=== PATIENT | female | born 1970 | race Caucasian/White ===

== ENCOUNTER 2024-01-08 17:06 | Inpatient (IN) | payer BC ==
[2024-01-08] MEDS ORDERED: Acetaminophen 325 MG TAB PO PRN (21:50)
[2024-01-08] MEDS ORDERED: Calcium Carbonate 500 MG ChewTAB PO PRN (21:50)
[2024-01-08] MEDS ORDERED: Acetaminophen/Codeine 30-300mg Tablet PO PRN (21:50)
[2024-01-08] MEDS ORDERED: Senokot S 8.6-50 MG TAB PO PRN (21:50)
[2024-01-08] MEDS ORDERED: hydrALAZINE 20 MG/ML VIAL SLOW IVP PRN (21:55)
[2024-01-08] MEDS ORDERED: Dextrose 5% in Water 1,000 ML IV PRN (22:00)
[2024-01-08] MEDS ORDERED: Dextrose 50% Abboject 50 ML SYRINGE SLOW IVP PRN (22:00)
[2024-01-08] MEDS ORDERED: Glucagon 1 MG/ML KIT IM PRN (22:00)
[2024-01-08] MEDS ORDERED: Insulin Lispro 100 UNIT/ML 10 ML VIAL SC PRN (22:00)
[2024-01-08 22:08] VITALS: BMI 25.4
[2024-01-08 22:41] LABS: Anion Gap 24 mmol/L (10-20); BUN (Urea Nitrogen) 42 mg/dL (9.8-20.1); Calc. Creatinine Clearance 29 mL/min (70-130); Calcium 8.4 mg/dL (7.8-10.44); Carbon Dioxide 17 mmol/L (22-29); Chloride 100 mmol/L (98-107); Estimated GFR 23; Glucose 246 mg/dL (70-105); Magnesium 2.9 mg/dL (1.6-2.6); Sodium 137 mmol/L (136-145)
[2024-01-08] MEDS: Sodium Chloride 0.9% 1,000 ML IV SCH ×2 (23:08→23:22)
[2024-01-08] MEDS: Sodium Bicarb 50 mEq/50 ML VIAL IVP SCH (23:22)
[2024-01-08] MEDS: Insulin Regular, Human 100 UNIT/ML 10 ML VIAL IVP SCH (23:51)
[2024-01-09 00:08] LABS: Troponin I 0.199 ng/mL (< 0.028)
[2024-01-09] MEDS ORDERED: Meclizine HCl 12.5 MG TAB PO PRN (01:10)
[2024-01-09 02:08] LABS: Troponin I 0.173 ng/mL (< 0.028)
[2024-01-09 04:16] LABS: Base Excess -5.8 mEq/L (-2.0 to +3.0); Calcium, Ionized (venous) 1.08 mmol/L (1.16-1.32); Chloride (VBG) 99 mmol/L (98-106); Hematocrit-VBG 31 % (36.0-47.0); Hemoglobin (Hb) 10.4 g/dL (11.7-16.0); Sodium 138 mmol/L (133-146); pH (venous) 7.356 (7.32-7.43)
[2024-01-09 04:38] LABS: ALT (SGPT) 14 U/L (8-55); AST (SGOT) 13 U/L (5-34); Albumin 2.9 g/dL (3.5-5.0); Alkaline Phosphatase 96 U/L (40-110); Anion Gap 22 mmol/L (10-20); BUN (Urea Nitrogen) 48 mg/dL (9.8-20.1); Bilirubin, Total 0.6 mg/dL (0.2-1.2); Calc. Creatinine Clearance 29 mL/min (70-130); Calcium 8.2 mg/dL (7.8-10.44); Carbon Dioxide 18 mmol/L (22-29); Cardiac Risk 2.6 (Less than 4.5); Chloride 102 mmol/L (98-107); Cholesterol 111 mg/dl (< 200 Desired); Estimated GFR 24; Globulin 3.2 g/dL (2.4-3.5); Glucose 240 mg/dL (70-105); HDL Cholesterol 42 mg/dL (>60 Neg Risk); LDL Cholesterol, Calculated 54 mg/dL; Magnesium 2.8 mg/dL (1.6-2.6); Potassium 3.8 mmol/L (3.5-5.1); Protein, Total 6.1 g/dL (6.0-8.3); Sodium 138 mmol/L (136-145); Triglycerides 73 mg/dL (Less than 150)
[2024-01-09 04:42] LABS: Hemoglobin A1c 7.6 % (4.0-6.0)
[2024-01-09 04:44] LABS: Hematocrit 29.7 % (36.0-47.0); Hemoglobin 9.5 g/dL (12.0-16.0); Mean Corpuscular Hemoglobin 27.2 pg (27.0-31.0); Mean Corpuscular Volume 85.1 fL (78.0-98.0); Mean Platelet Volume 13.6 fL (7.4-10.4); Platelet Count 161 10x3/uL (130-400); RBC Distribution Width 12.4 % (11.5-14.5); Red Blood Cell (RBC) Count 3.49 mill/uL (4.20-5.40)
[2024-01-09] MEDS: Insulin Lispro 100 UNIT/ML 10 ML VIAL SC SCH (05:00)
[2024-01-09] MEDS: Sodium Bicarbonate Tab 325 MG TAB PO SCH ×2 (05:01→10:04)
[2024-01-09] MEDS: Lactated Ringer's 500 ML IV SCH (05:01)
[2024-01-09 06:38] LABS: Anisocytosis SLIGHT = 6-15 cells HPF (0-5); Band 4 % (5-11); Elliptocytes SLIGHT = 2-5 cells HPF (0-1); Lymphocytes 20 % (21-51); Monocytes 5 % (0-10); Neutrophil 69 % (42-75); Platelet Adequacy Comment Platelets Normal; Reactive Lymphocytes 2 % (0-10)
[2024-01-09 07:48] LABS: Bacteria/HPF 4+ HPF (None Seen); Bilirubin Negative (Negative); Blood, Urine Negative (Negative); Clarity Turbid (Clear); Glucose, Urine (Dipstick) Greater than 1000 mg/dL (Negative); Ketone, Urine 10 mg/dL (Negative); Leukocyte Negative Leu/uL (Negative); Nitrite Negative (Negative); Protein, Urine (Dipstick) 50 mg/dL (Neg-Trace); RBC/HPF 0-3 HPF (0-3); Specific Gravity, Urine 1.006 (1.002-1.036); Squamous Epithelial None Seen HPF (0-3); Urobilinogen Normal mg/dL (Less than 2); WBC/HPF 0-3 HPF (0-3)
[2024-01-09] MEDS ORDERED: Sodium Bicarbonate Tab 325 MG TAB PO SCH (09:00)
[2024-01-09] MEDS: Aspirin Chewable 81 MG TAB PO SCH (10:04)
[2024-01-09] MEDS: Ezetimibe 10 MG TAB PO SCH (10:04)
[2024-01-09] MEDS: Pantoprazole DR 40 MG TAB PO SCH (10:04)
[2024-01-09] MEDS: Clopidogrel Bisulfate 75 MG TAB PO SCH (10:05)
[2024-01-09] MEDS: Insulin Glargine 30 UNITS/0.3 ML VIAL SC SCH (10:05)
[2024-01-09] MEDS: Heparin 5,000 UNITS/ML VIAL SC SCH (10:05)
[2024-01-09 10:25] LABS: Anion Gap 19 mmol/L (10-20); BUN (Urea Nitrogen) 49 mg/dL (9.8-20.1); Calc. Creatinine Clearance 30 mL/min (70-130); Carbon Dioxide 21 mmol/L (22-29); Chloride 101 mmol/L (98-107); Estimated GFR 24; Glucose 256 mg/dL (70-105); Potassium 3.5 mmol/L (3.5-5.1); Sodium 137 mmol/L (136-145)
[2024-01-09] MEDS: PARoxetine CR 12.5 MG ER.TAB PO SCH (10:25)
[2024-01-09] MEDS: Insulin Lispro 100 UNIT/ML 10 ML VIAL SC PRN (14:27)
[2024-01-09] MEDS: hydrALAZINE 25 MG TAB PO SCH ×2 (18:00→20:38)
[2024-01-09] MEDS: Isosorbide Dinitrate 20 MG TAB PO SCH (18:02)
[2024-01-09] MEDS: Isosorbide Dinitrate 5 MG TAB PO SCH (20:38)
[2024-01-10 04:41] LABS: Albumin 2.9 g/dL (3.5-5.0); Anion Gap 15 mmol/L (10-20); BUN (Urea Nitrogen) 50 mg/dL (9.8-20.1); Calc. Creatinine Clearance 30 mL/min (70-130); Calcium 7.7 mg/dL (7.8-10.44); Carbon Dioxide 23 mmol/L (22-29); Chloride 102 mmol/L (98-107); Estimated GFR 24; Glucose 162 mg/dL (70-105); Phosphorus 4.3 mg/dL (2.3-4.7); Potassium 3.5 mmol/L (3.5-5.1); Sodium 136 mmol/L (136-145)
[2024-01-11 04:24] LABS: Anion Gap 14 mmol/L (10-20); BUN (Urea Nitrogen) 41 mg/dL (9.8-20.1); Calc. Creatinine Clearance 34 mL/min (70-130); Calcium 7.7 mg/dL (7.8-10.44); Carbon Dioxide 23 mmol/L (22-29); Chloride 106 mmol/L (98-107); Estimated GFR 28; Glucose 100 mg/dL (70-105); Magnesium 2.5 mg/dL (1.6-2.6); Potassium 3.8 mmol/L (3.5-5.1); Sodium 139 mmol/L (136-145)
[2024-01-11 10:12] LABS: #Basophils 0.03 10x3/uL (0.0-0.2); %Basophils 0.7 % (0.0-1.0); %Monocytes 9.3 % (0.0-10.0); %Neutrophils 66.8 % (42.0-75.0); Hematocrit 30.6 % (36.0-47.0); Hemoglobin 9.9 g/dL (12.0-16.0); Mean Corpuscular HGB CONC 32.4 g/dL (32.0-36.0); Mean Corpuscular Hemoglobin 27.3 pg (27.0-31.0); Mean Corpuscular Volume 84.5 fL (78.0-98.0); Mean Platelet Volume 13.3 fL (7.4-10.4); Platelet Count 250 10x3/uL (130-400); RBC Distribution Width 12.6 % (11.5-14.5); Red Blood Cell (RBC) Count 3.62 mill/uL (4.20-5.40)
[2024-01-11] MEDS: hydrALAZINE 25 MG TAB PO SCH (14:21)
[2024-01-11] MEDS: Dapagliflozin Propanediol 10 MG TAB PO SCH (14:21)
[2024-01-12 04:52] LABS: #Basophils 0.04 10x3/uL (0.0-0.2); %Basophils 0.7 % (0.0-1.0); %Eosinophils 4.2 % (0.0-10.0); %Lymphocytes 29.2 % (21.0-51.0); %Monocytes 10.4 % (0.0-10.0); %Neutrophils 55.3 % (42.0-75.0); Hematocrit 30.1 % (36.0-47.0); Hemoglobin 9.5 g/dL (12.0-16.0); Mean Corpuscular HGB CONC 31.6 g/dL (32.0-36.0); Mean Corpuscular Hemoglobin 26.9 pg (27.0-31.0); Mean Corpuscular Volume 85.3 fL (78.0-98.0); Mean Platelet Volume 12.9 fL (7.4-10.4); Platelet Count 233 10x3/uL (130-400); RBC Distribution Width 12.8 % (11.5-14.5); Red Blood Cell (RBC) Count 3.53 mill/uL (4.20-5.40)
[2024-01-12 05:16] LABS: Anion Gap 14 mmol/L (10-20); BUN (Urea Nitrogen) 30 mg/dL (9.8-20.1); Calc. Creatinine Clearance 42 mL/min (70-130); Calcium 8.2 mg/dL (7.8-10.44); Carbon Dioxide 18 mmol/L (22-29); Chloride 105 mmol/L (98-107); Estimated GFR 37; Glucose 101 mg/dL (70-105); Potassium 3.8 mmol/L (3.5-5.1); Sodium 133 mmol/L (136-145)
[2024-01-12] MEDS: Dapagliflozin Propanediol 10 MG TAB PO SCH (09:30)
[2024-01-12] MEDS: Torsemide 10 MG TAB PO SCH (10:00)
[2024-01-12] MEDS: Isosorbide Dinitrate 20 MG TAB PO SCH ×2 (10:00→14:52)
[2024-01-13 05:05] LABS: Anion Gap 13 mmol/L (10-20); BUN (Urea Nitrogen) 29 mg/dL (9.8-20.1); Calc. Creatinine Clearance 34 mL/min (70-130); Calcium 8.2 mg/dL (7.8-10.44); Carbon Dioxide 25 mmol/L (22-29); Chloride 102 mmol/L (98-107); Estimated GFR 29; Glucose 97 mg/dL (70-105); Potassium 3.5 mmol/L (3.5-5.1); Sodium 136 mmol/L (136-145)
[2024-01-13] MEDS ORDERED: Torsemide 10 MG TAB PO SCH (09:00)
[2024-01-13 15:03] VITALS: BP 168/74; TEMP 98.1
== END 2024-01-13 16:40 | disposition home or self-care (01) | DRG 682 ==
LOC: 2NO 21:25 → MERGE 21:25
PROVIDERS: ADMIT Internal Medicine; ATTEND Internal Medicine
DX: N17.9 Acute kidney failure, unspecified (principal); E11.10 Type 2 diabetes mellitus with ketoacidosis without coma; I50.33 Acute on chronic diastolic (congestive) heart failure; I13.0 Hypertensive heart and chronic kidney disease with heart failure and stage 1 through stage 4 chronic kidney disease, or unspecified chronic kidney disease; I50.32 Chronic diastolic (congestive) heart failure; F31.9 Bipolar disorder, unspecified; E11.22 Type 2 diabetes mellitus with diabetic chronic kidney disease; E78.5 Hyperlipidemia, unspecified; I25.10 Atherosclerotic heart disease of native coronary artery without angina pectoris; D63.1 Anemia in chronic kidney disease; H54.61 Unqualified visual loss, right eye, normal vision left eye; N18.30 Chronic kidney disease, stage 3 unspecified; I45.81 Long QT syndrome; Z90.49 Acquired absence of other specified parts of digestive tract; E86.0 Dehydration; Z95.5 Presence of coronary angioplasty implant and graft; Z88.0 Allergy status to penicillin; Z88.8 Allergy status to other drugs, medicaments and biological substances; I25.2 Old myocardial infarction; Z86.73 Personal history of transient ischemic attack (TIA), and cerebral infarction without residual deficits
CPT/HCPCS: 36415; 36416; 70551; 80048; 80053; 80061; 80069; 81001; 82010; 82805; 83036; 83735; 83880; 84443; 84484; 85025; 93005; 93010; J1644; J1815; J7030; J7120

== ENCOUNTER 2024-01-16 04:12 | Inpatient (IN) | payer BC, SELFPAY ==
[2024-01-16] MEDS ORDERED: Acetaminophen 500 MG TAB PO PRN (22:55)
[2024-01-16] MEDS ORDERED: Calcium Carbonate 500 MG TAB PO PRN (22:56)
[2024-01-16] MEDS ORDERED: Promethazine HCl 25 MG SUPP PR PRN (22:57)
[2024-01-16] MEDS ORDERED: cloNIDine 0.1 MG TAB PO PRN (22:57)
[2024-01-16] MEDS ORDERED: Promethazine 25 MG TAB PO PRN (22:57)
[2024-01-16] MEDS ORDERED: Artificial Tear Ophth Sol 15 ML BOT EA EYE PRN (22:59)
[2024-01-16] MEDS ORDERED: Bisacodyl 5 MG TAB PO PRN (22:59)
[2024-01-16] MEDS ORDERED: Benzonatate 100 MG CAP PO PRN (22:59)
[2024-01-16] MEDS: Furosemide 40 MG (4 mL) VIAL SLOW IVP SCH (23:05)
[2024-01-16] MEDS: hydrALAZINE 25 MG TAB ONE (23:06)
[2024-01-16] MEDS: Rosuvastatin 10 MG TAB ONE (23:06)
[2024-01-16] MEDS: Clopidogrel Bisulfate 75 MG TAB PO SCH (23:06)
[2024-01-16] MEDS: Isosorbide Dinitrate 20 MG TAB ONE (23:06)
[2024-01-16] MEDS ORDERED: Glucagon 1 MG/ML KIT IM PRN (23:15)
[2024-01-16] MEDS ORDERED: Dextrose 5% in Water 1,000 ML IV PRN (23:15)
[2024-01-16] MEDS ORDERED: Dextrose 50% Abboject 50 ML SYRINGE SLOW IVP PRN (23:15)
[2024-01-16] MEDS: LevoFLOXacin 750 mg/D5W 750 MG in Premix 1 BAG IVPB SCH (23:33)
[2024-01-17 04:26] LABS: #Basophils 0.05 10x3/uL (0.0-0.2); %Basophils 0.6 % (0.0-1.0); %Eosinophils 1.9 % (0.0-10.0); %Lymphocytes 22.6 % (21.0-51.0); %Monocytes 7.4 % (0.0-10.0); %Neutrophils 67.3 % (42.0-75.0); Hematocrit 31.1 % (36.0-47.0); Hemoglobin 9.7 g/dL (12.0-16.0); Mean Corpuscular HGB CONC 31.2 g/dL (32.0-36.0); Mean Corpuscular Hemoglobin 26.9 pg (27.0-31.0); Mean Corpuscular Volume 86.1 fL (78.0-98.0); Mean Platelet Volume 12.3 fL (7.4-10.4); Platelet Count 320 10x3/uL (130-400); Red Blood Cell (RBC) Count 3.61 mill/uL (4.20-5.40)
[2024-01-17 05:11] LABS: Anion Gap 14 mmol/L (10-20); BUN (Urea Nitrogen) 37 mg/dL (9.8-20.1); Calc. Creatinine Clearance 0 mL/min (70-130); Calcium 8.7 mg/dL (7.8-10.44); Carbon Dioxide 24 mmol/L (22-29); Chloride 100 mmol/L (98-107); Estimated GFR 21; Glucose 148 mg/dL (70-105); Potassium 3.4 mmol/L (3.5-5.1); Sodium 135 mmol/L (136-145)
[2024-01-17 05:18] VITALS: BMI 24.0
[2024-01-17] MEDS ORDERED: Potassium Chloride 20 MEQ TAB PO SCH (09:23)
[2024-01-17] MEDS: Aspirin 81 mg Enteric Coated Tablet PO SCH (15:06)
[2024-01-17] MEDS: Dapagliflozin Propanediol 10 MG TAB PO SCH (15:07)
[2024-01-17] MEDS: hydrALAZINE 25 MG TAB PO SCH (15:07)
[2024-01-17] MEDS: Ezetimibe 10 MG TAB PO SCH (15:07)
[2024-01-17] MEDS: Isosorbide Dinitrate 20 MG TAB PO SCH (15:08)
[2024-01-17] MEDS: Pantoprazole DR 40 MG TAB PO SCH (15:09)
[2024-01-17] MEDS: Rosuvastatin 10 MG TAB PO SCH (22:11)
[2024-01-17] MEDS: Heparin 5,000 UNITS/ML VIAL SC SCH (22:11)
[2024-01-17] MEDS: Insulin Lispro 100 UNIT/ML 10 ML VIAL SC PRN (22:12)
[2024-01-18] MEDS: LevoFLOXacin 500 mg/D5W 500 MG in Premix 1 BAG IVPB SCH (23:44)
[2024-01-19 06:12] LABS: #Basophils 0.06 10x3/uL (0.0-0.2); %Basophils 1.1 % (0.0-1.0); %Eosinophils 5.5 % (0.0-10.0); %Lymphocytes 25.6 % (21.0-51.0); %Monocytes 8.1 % (0.0-10.0); %Neutrophils 59.5 % (42.0-75.0); Hematocrit 31.6 % (36.0-47.0); Hemoglobin 10.2 g/dL (12.0-16.0); Mean Corpuscular HGB CONC 32.3 g/dL (32.0-36.0); Mean Corpuscular Hemoglobin 26.6 pg (27.0-31.0); Mean Corpuscular Volume 82.3 fL (78.0-98.0); Mean Platelet Volume 12.8 fL (7.4-10.4); Platelet Count 276 10x3/uL (130-400); RBC Distribution Width 12.7 % (11.5-14.5); Red Blood Cell (RBC) Count 3.84 mill/uL (4.20-5.40)
[2024-01-19 06:52] LABS: Anion Gap 16 mmol/L (10-20); BUN (Urea Nitrogen) 49 mg/dL (9.8-20.1); Calc. Creatinine Clearance 20 mL/min (70-130); Calcium 8.6 mg/dL (7.8-10.44); Carbon Dioxide 25 mmol/L (22-29); Chloride 96 mmol/L (98-107); Estimated GFR 17; Glucose 194 mg/dL (70-105); Potassium 3.2 mmol/L (3.5-5.1); Sodium 134 mmol/L (136-145)
[2024-01-19] MEDS: Potassium Chloride 20 MEQ TAB PO SCH (09:30)
[2024-01-20 05:16] LABS: Anion Gap 18 mmol/L (10-20); BUN (Urea Nitrogen) 51 mg/dL (9.8-20.1); Calc. Creatinine Clearance 18 mL/min (70-130); Calcium 8.7 mg/dL (7.8-10.44); Carbon Dioxide 21 mmol/L (22-29); Chloride 97 mmol/L (98-107); Estimated GFR 15; Glucose 165 mg/dL (70-105); Potassium 3.5 mmol/L (3.5-5.1); Sodium 132 mmol/L (136-145)
[2024-01-20] MEDS ORDERED: Furosemide 40 MG TAB PO SCH (07:30)
[2024-01-20] MEDS ORDERED: Sodium Chloride 0.9% 500 ML IV SCH (07:45)
[2024-01-20 08:53] LABS: Albumin 3.2 g/dL (3.5-5.0); Magnesium 2.2 mg/dL (1.6-2.6)
[2024-01-20] MEDS: Sodium Bicarbonate Tab 325 MG TAB PO SCH ×2 (11:27→21:10)
[2024-01-21 08:24] LABS: Hematocrit 37.3 % (36.0-47.0); Mean Corpuscular HGB CONC 32.2 g/dL (32.0-36.0); Mean Corpuscular Hemoglobin 26.8 pg (27.0-31.0); Mean Corpuscular Volume 83.3 fL (78.0-98.0); RBC Distribution Width 12.9 % (11.5-14.5); Red Blood Cell (RBC) Count 4.48 mill/uL (4.20-5.40); White Blood Cell (WBC) Count 23.31 10x3/uL (4.8-10.8)
[2024-01-21 08:25] LABS: #Basophils 0.05 10x3/uL (0.0-0.2); #Monocytes 0.81 10x3/uL (0.11-0.59); #Neutrophils 21.78 10x3/uL (1.40-6.50); %Basophils 0.2 % (0.0-1.0); %Lymphocytes 1.7 % (21.0-51.0); %Monocytes 3.5 % (0.0-10.0); %Neutrophils 93.4 % (42.0-75.0); Mean Platelet Volume 12.8 fL (7.4-10.4); Platelet Count 368 10x3/uL (130-400)
[2024-01-21 09:13] LABS: Hematocrit 32.8 % (36.0-47.0); Hemoglobin 10.5 g/dL (12.0-16.0); Mean Corpuscular Hemoglobin 26.8 pg (27.0-31.0); Mean Corpuscular Volume 8.4 fL (78.0-98.0); Red Blood Cell (RBC) Count 3.92 mill/uL (4.20-5.40); White Blood Cell (WBC) Count 18.54 10x3/uL (4.8-10.8)
[2024-01-21 09:14] LABS: #Basophils 0.03 10x3/uL (0.0-0.2); #Monocytes 1.05 10x3/uL (0.11-0.59); #Neutrophils 16.49 10x3/uL (1.40-6.50); %Basophils 0.2 % (0.0-1.0); %Lymphocytes 4.6 % (21.0-51.0); %Monocytes 5.7 % (0.0-10.0); %Neutrophils 88.9 % (42.0-75.0); Mean Platelet Volume 12.8 fL (7.4-10.4); Platelet Count 310 10x3/uL (130-400)
[2024-01-21 10:26] LABS: Albumin 3.1 g/dL (3.5-5.0); Anion Gap 14 mmol/L (10-20); BUN (Urea Nitrogen) 49 mg/dL (9.8-20.1); BUN/Creatinine Ratio 14.67; Calc. Creatinine Clearance 19 mL/min (70-130); Calcium 8.5 mg/dL (7.8-10.44); Carbon Dioxide 24 mmol/L (22-29); Chloride 96 mmol/L (98-107); Estimated GFR 16; Glucose 267 mg/dL (70-105); Phosphorus 4.5 mg/dL (2.3-4.7); Potassium 3.4 mmol/L (3.5-5.1); Sodium 131 mmol/L (136-145)
[2024-01-21] MEDS: Potassium Chloride 20 MEQ TAB PO SCH (11:56)
[2024-01-21 16:15] LABS: ALT (SGPT) 38 U/L (8-55)
[2024-01-21 16:51] LABS: Critical Call Chemistry @0538 NUR.AC11
[2024-01-21 16:52] LABS: Carbon Dioxide 19 mmol/L (22-29); Chloride 98 mmol/L (98-107); Potassium 4.5 mmol/L (3.5-5.1); Sodium 135 mmol/L (136-145)
[2024-01-21 16:53] LABS: BUN (Urea Nitrogen) 37 mg/dL (9.8-20.1)
[2024-01-21 16:54] LABS: Bilirubin, Total 0.6 mg/dL (0.2-1.2); Calc. Creatinine Clearance 23 mL/min (70-130); Calcium 9.1 mg/dL (7.6-10.4); Estimated GFR 20; Glucose 538 mg/dL (70-105)
[2024-01-21 16:55] LABS: Albumin 3.8 g/dL (3.5-5.0); Anion Gap 23 mmol/L (10-20); Protein, Total 7.7 g/dL (6.0-8.3)
[2024-01-21 16:56] LABS: ALT (SGPT) 38 U/L (8-55); AST (SGOT) 55 U/L (5-34); Alkaline Phosphatase 115 U/L (40-110); Globulin 3.9 g/dL (2.4-3.5)
[2024-01-21 16:59] LABS: Chloride 102 mmol/L (98-107); Potassium 3.8 mmol/L (3.5-5.1); Sodium 138 mmol/L (136-145)
[2024-01-21 17:01] LABS: Anion Gap 18 mmol/L (10-20); BUN (Urea Nitrogen) 38 mg/dL (9.8-20.1); Carbon Dioxide 22 mmol/L (22-29)
[2024-01-21 17:02] LABS: Calc. Creatinine Clearance 26 mL/min (70-130); Estimated GFR 23
[2024-01-21 17:04] LABS: Glucose 287 mg/dL (70-105)
[2024-01-21 17:05] LABS: Albumin 3.5 g/dL (3.5-5.0); Bilirubin, Total 0.5 mg/dL (0.2-1.2); Protein, Total 6.8 g/dL (6.0-8.3)
[2024-01-21 17:06] LABS: Globulin 3.3 g/dL (2.4-3.5)
[2024-01-21 17:07] LABS: AST (SGOT) 94 U/L (5-34); Alkaline Phosphatase 96 U/L (40-110)
[2024-01-22 06:17] LABS: Albumin 3.1 g/dL (3.5-5.0); Anion Gap 15 mmol/L (10-20); BUN (Urea Nitrogen) 45 mg/dL (9.8-20.1); BUN/Creatinine Ratio 14.75; Calc. Creatinine Clearance 21 mL/min (70-130); Calcium 8.6 mg/dL (7.8-10.44); Carbon Dioxide 23 mmol/L (22-29); Chloride 103 mmol/L (98-107); Estimated GFR 18; Glucose 154 mg/dL (70-105); Magnesium 2.4 mg/dL (1.6-2.6); Phosphorus 4.4 mg/dL (2.3-4.7); Potassium 3.8 mmol/L (3.5-5.1); Sodium 137 mmol/L (136-145)
[2024-01-22 06:27] LABS: #Basophils 0.05 10x3/uL (0.0-0.2); %Basophils 0.9 % (0.0-1.0); %Eosinophils 4.4 % (0.0-10.0); %Lymphocytes 30.6 % (21.0-51.0); %Neutrophils 56.8 % (42.0-75.0); Hematocrit 31.5 % (36.0-47.0); Hemoglobin 10.1 g/dL (12.0-16.0); Mean Corpuscular HGB CONC 32.1 g/dL (32.0-36.0); Mean Corpuscular Hemoglobin 26.3 pg (27.0-31.0); Mean Platelet Volume 13.1 fL (7.4-10.4); Platelet Count 265 10x3/uL (130-400); RBC Distribution Width 12.8 % (11.5-14.5); Red Blood Cell (RBC) Count 3.84 mill/uL (4.20-5.40)
[2024-01-22] MEDS: Dapagliflozin Propanediol 10 MG TAB PO SCH (10:33)
[2024-01-22 15:48] VITALS: TEMP 98.2
[2024-01-22 17:00] VITALS: BP 160/77
== END 2024-01-22 18:00 | disposition home or self-care (01) | DRG 280 ==
LOC: ERS 04:12 → EDBD 06:49 → IMCU/EMU 06:49 → 2NO 17:58
PROVIDERS: ADMIT Student in an Organized Health Care Education/Training Program; ATTEND Internal Medicine
DX: I13.0 Hypertensive heart and chronic kidney disease with heart failure and stage 1 through stage 4 chronic kidney disease, or unspecified chronic kidney disease (principal); I50.33 Acute on chronic diastolic (congestive) heart failure; I21.4 Non-ST elevation (NSTEMI) myocardial infarction; J96.01 Acute respiratory failure with hypoxia; J15.69 Pneumonia due to other Gram-negative bacteria; N17.9 Acute kidney failure, unspecified; E87.21 Acute metabolic acidosis; E22.2 Syndrome of inappropriate secretion of antidiuretic hormone; I25.10 Atherosclerotic heart disease of native coronary artery without angina pectoris; E78.5 Hyperlipidemia, unspecified; E11.22 Type 2 diabetes mellitus with diabetic chronic kidney disease; N18.30 Chronic kidney disease, stage 3 unspecified; F31.9 Bipolar disorder, unspecified; E87.6 Hypokalemia; Z98.84 Bariatric surgery status; Z90.49 Acquired absence of other specified parts of digestive tract; Z98.891 History of uterine scar from previous surgery; Z86.73 Personal history of transient ischemic attack (TIA), and cerebral infarction without residual deficits; Z88.0 Allergy status to penicillin; Z88.8 Allergy status to other drugs, medicaments and biological substances; Z79.899 Other long term (current) drug therapy; I25.2 Old myocardial infarction; Z95.5 Presence of coronary angioplasty implant and graft
CPT/HCPCS: 36415; 36416; 71045; 76770; 80048; 80069; 82040; 83735; 83880; 84484; 85025; 93798; J1644; J1815; J1940; J1956

== ENCOUNTER 2024-03-01 23:23 | Inpatient (IN) | payer BC ==
[2024-03-01 23:50] LABS: #Basophils 0.04 10x3/uL (0.0-0.2); %Basophils 0.4 % (0.0-1.0); %Eosinophils 4.1 % (0.0-10.0); %Lymphocytes 13.4 % (21.0-51.0); %Monocytes 5.5 % (0.0-10.0); %Neutrophils 76.2 % (42.0-75.0); Hematocrit 30.4 % (36.0-47.0); Hemoglobin 9.3 g/dL (12.0-16.0); Mean Corpuscular HGB CONC 30.6 g/dL (32.0-36.0); Mean Corpuscular Hemoglobin 25.5 pg (27.0-31.0); Mean Corpuscular Volume 83.3 fL (78.0-98.0); Mean Platelet Volume 12.8 fL (7.4-10.4); Platelet Count 232 10x3/uL (130-400); RBC Distribution Width 13.3 % (11.5-14.5); Red Blood Cell (RBC) Count 3.65 mill/uL (4.20-5.40)
[2024-03-02 00:17] LABS: ALT (SGPT) 12 U/L (8-55); AST (SGOT) 17 U/L (5-34); Albumin 3.4 g/dL (3.5-5.0); Alkaline Phosphatase 111 U/L (40-110); Anion Gap 15 mmol/L (10-20); BUN (Urea Nitrogen) 38 mg/dL (9.8-20.1); Bilirubin, Total 0.3 mg/dL (0.2-1.2); Calc. Creatinine Clearance 0 mL/min (70-130); Calcium 8.4 mg/dL (7.8-10.44); Carbon Dioxide 20 mmol/L (22-29); Chloride 108 mmol/L (98-107); Estimated GFR 24; Globulin 3.5 g/dL (2.4-3.5); Glucose 169 mg/dL (70-105); Potassium 3.8 mmol/L (3.5-5.1); Protein, Total 6.9 g/dL (6.0-8.3); Sodium 139 mmol/L (136-145)
[2024-03-02 00:21] LABS: Troponin I 0.046 ng/mL (< 0.028)
[2024-03-02] MEDS ORDERED: Ondansetron PF 4 MG/2 ML Vial IVP PRN (01:29)
[2024-03-02] MEDS ORDERED: Insulin Lispro 100 UNIT/ML 10 ML VIAL SC PRN (01:29)
[2024-03-02] MEDS ORDERED: Ondansetron ODT 4 MG TAB PO PRN (01:29)
[2024-03-02] MEDS ORDERED: Acetaminophen 325 MG TAB PO PRN (01:29)
[2024-03-02] MEDS ORDERED: Dextrose 50% Abboject 50 ML SYRINGE SLOW IVP PRN (01:29)
[2024-03-02] MEDS ORDERED: Dextrose 5% in Water 1,000 ML IV PRN (01:29)
[2024-03-02] MEDS ORDERED: Glucagon 1 MG/ML KIT IM PRN (01:29)
[2024-03-02] MEDS ORDERED: traZODone HCl 50 MG TAB PO PRN (01:36)
[2024-03-02 02:43] VITALS: BMI 25.5
[2024-03-02 04:08] LABS: #Basophils 0.03 10x3/uL (0.0-0.2); %Basophils 0.5 % (0.0-1.0); %Eosinophils 5.6 % (0.0-10.0); %Lymphocytes 25.3 % (21.0-51.0); %Neutrophils 61.4 % (42.0-75.0); Hematocrit 28.4 % (36.0-47.0); Hemoglobin 8.9 g/dL (12.0-16.0); Mean Corpuscular HGB CONC 31.3 g/dL (32.0-36.0); Mean Corpuscular Hemoglobin 25.7 pg (27.0-31.0); Mean Corpuscular Volume 82.1 fL (78.0-98.0); Mean Platelet Volume 12.6 fL (7.4-10.4); Platelet Count 198 10x3/uL (130-400); RBC Distribution Width 13.2 % (11.5-14.5); Red Blood Cell (RBC) Count 3.46 mill/uL (4.20-5.40)
[2024-03-02 04:42] LABS: Anion Gap 13 mmol/L (10-20); BUN (Urea Nitrogen) 36 mg/dL (9.8-20.1); Calc. Creatinine Clearance 34 mL/min (70-130); Calcium 8.3 mg/dL (7.8-10.44); Carbon Dioxide 19 mmol/L (22-29); Chloride 111 mmol/L (98-107); Estimated GFR 28; Glucose 124 mg/dL (70-105); Sodium 139 mmol/L (136-145)
[2024-03-02 05:55] LABS: Troponin I 0.063 ng/mL (< 0.028)
[2024-03-02] MEDS: hydrALAZINE 25 MG TAB PO SCH (08:32)
[2024-03-02] MEDS: Isosorbide Dinitrate 20 MG TAB PO SCH (08:32)
[2024-03-02] MEDS: Aspirin 81 mg Enteric Coated Tablet PO SCH (08:32)
[2024-03-02] MEDS: Sodium Bicarbonate Tab 325 MG TAB PO SCH (08:32)
[2024-03-02] MEDS: Ezetimibe 10 MG TAB PO SCH (08:32)
[2024-03-02] MEDS: Torsemide 20 MG TAB PO SCH (08:33)
[2024-03-02] MEDS: Ferrous Sulfate 325 MG TAB PO SCH (08:33)
[2024-03-02] MEDS: Colestipol HCl 5 GM PK PO SCH (09:57)
[2024-03-02] MEDS: Dapagliflozin Propanediol 10 MG TAB PO SCH (09:57)
[2024-03-02] MEDS: Clopidogrel Bisulfate 75 MG TAB PO SCH (12:07)
[2024-03-02] MEDS ORDERED: Furosemide 40 MG (4 mL) VIAL SLOW IVP SCH (12:30)
[2024-03-02] MEDS: Furosemide 20 MG (2 mL) VIAL SLOW IVP SCH (13:41)
[2024-03-02] MEDS: Rosuvastatin 10 MG TAB PO SCH (21:58)
[2024-03-02] MEDS: Cyanocobalamin (Vitamin B-12) 1,000 MCG TAB PO SCH (21:58)
[2024-03-03 04:10] LABS: Anion Gap 15 mmol/L (10-20); BUN (Urea Nitrogen) 37 mg/dL (9.8-20.1); Calc. Creatinine Clearance 27 mL/min (70-130); Carbon Dioxide 21 mmol/L (22-29); Chloride 105 mmol/L (98-107); Estimated GFR 22; Glucose 160 mg/dL (70-105); Potassium 3.8 mmol/L (3.5-5.1); Sodium 137 mmol/L (136-145)
[2024-03-03 04:29] LABS: #Basophils 0.04 10x3/uL (0.0-0.2); %Basophils 0.7 % (0.0-1.0); %Eosinophils 4.2 % (0.0-10.0); %Lymphocytes 20.2 % (21.0-51.0); %Monocytes 6.7 % (0.0-10.0); %Neutrophils 67.9 % (42.0-75.0); Hematocrit 25.9 % (36.0-47.0); Hemoglobin 8.2 g/dL (12.0-16.0); Mean Corpuscular HGB CONC 31.7 g/dL (32.0-36.0); Mean Corpuscular Hemoglobin 25.8 pg (27.0-31.0); Mean Corpuscular Volume 81.4 fL (78.0-98.0); Mean Platelet Volume 13.1 fL (7.4-10.4); Platelet Count 215 10x3/uL (130-400); RBC Distribution Width 13.2 % (11.5-14.5); Red Blood Cell (RBC) Count 3.18 mill/uL (4.20-5.40)
[2024-03-03] MEDS ORDERED: Sodium Chloride 0.9% 500 ML IV SCH (07:30)
[2024-03-03] MEDS: Sodium Chloride 0.9% 250 ML IV SCH (08:02)
[2024-03-03] MEDS: Clopidogrel Bisulfate 75 MG TAB PO SCH (08:03)
[2024-03-03] MEDS: Insulin Lispro 100 UNIT/ML 10 ML VIAL SC PRN (12:08)
[2024-03-03 16:55] LABS: Anion Gap 12 mmol/L (10-20); BUN (Urea Nitrogen) 37 mg/dL (9.8-20.1); Calc. Creatinine Clearance 31 mL/min (70-130); Calcium 8.1 mg/dL (7.8-10.44); Carbon Dioxide 23 mmol/L (22-29); Chloride 106 mmol/L (98-107); Estimated GFR 26; Glucose 203 mg/dL (70-105); Potassium 3.6 mmol/L (3.5-5.1); Sodium 137 mmol/L (136-145)
[2024-03-03] MEDS ORDERED: Electrolyte Replacement Protocol 1 EACH FS ONE (18:27)
[2024-03-03] MEDS ORDERED: Electrolyte Replacement Protocol FS PRN (18:30)
[2024-03-03] MEDS: Magnesium Oxide 400 MG TAB PO SCH (21:28)
[2024-03-04 05:03] LABS: Anion Gap 12 mmol/L (10-20); BUN (Urea Nitrogen) 37 mg/dL (9.8-20.1); Calc. Creatinine Clearance 32 mL/min (70-130); Calcium 8.4 mg/dL (7.8-10.44); Carbon Dioxide 24 mmol/L (22-29); Chloride 107 mmol/L (98-107); Estimated GFR 27; Glucose 123 mg/dL (70-105); Potassium 3.5 mmol/L (3.5-5.1); Sodium 139 mmol/L (136-145)
[2024-03-04] MEDS: Potassium Chloride 20 MEQ TAB PO SCH (10:41)
[2024-03-04 12:24] VITALS: BP 122/82; TEMP 97.6
== END 2024-03-04 13:10 | disposition home or self-care (01) | DRG 291 ==
LOC: ERS 23:23 → PCU 03-02 01:18 → OBSVTOIN 03-03 13:41
PROVIDERS: ADMIT Internal Medicine; ATTEND Internal Medicine
DX: I13.0 Hypertensive heart and chronic kidney disease with heart failure and stage 1 through stage 4 chronic kidney disease, or unspecified chronic kidney disease (principal); I50.33 Acute on chronic diastolic (congestive) heart failure; N17.9 Acute kidney failure, unspecified; N18.4 Chronic kidney disease, stage 4 (severe); E87.20 Acidosis, unspecified; E11.22 Type 2 diabetes mellitus with diabetic chronic kidney disease; I25.10 Atherosclerotic heart disease of native coronary artery without angina pectoris; F31.9 Bipolar disorder, unspecified; T50.2X5A Adverse effect of carbonic-anhydrase inhibitors, benzothiadiazides and other diuretics, initial encounter; D53.9 Nutritional anemia, unspecified; D63.1 Anemia in chronic kidney disease; F41.9 Anxiety disorder, unspecified; Z88.8 Allergy status to other drugs, medicaments and biological substances; Z95.5 Presence of coronary angioplasty implant and graft; Z88.0 Allergy status to penicillin; Z90.49 Acquired absence of other specified parts of digestive tract; Z98.84 Bariatric surgery status; Z86.73 Personal history of transient ischemic attack (TIA), and cerebral infarction without residual deficits; I25.2 Old myocardial infarction; Z79.899 Other long term (current) drug therapy; Z79.02 Long term (current) use of antithrombotics/antiplatelets; Z79.82 Long term (current) use of aspirin
CPT/HCPCS: 36415; 36416; 71045; 80048; 80053; 83735; 83880; 84484; 85025; 93005; 93306; 93798; 96374; G0378; J1940

== ENCOUNTER 2024-03-13 14:40 | Outpatient (CLI) | payer BC | END 2024-03-13 14:41 | disposition home or self-care (01) | LOC: SCSRAD 14:40 | DX: I11.0 Hypertensive heart disease with heart failure (principal); I50.9 Heart failure, unspecified; R06.00 Dyspnea, unspecified | CPT/HCPCS: 71046 ==

== ENCOUNTER 2025-01-09 20:40 | Observation (INO) | payer SELFPAY ==
[2025-01-09 23:26] LABS: Hematocrit 33.9 % (36.0-47.0); Hemoglobin 9.6 g/dL (12.0-16.0); Mean Corpuscular Hemoglobin 21.5 pg (27.0-31.0); Mean Corpuscular Volume 75.8 fL (78.0-98.0); Platelet Count 194 10x3/uL (130-400); Red Blood Cell (RBC) Count 4.47 mill/uL (4.20-5.40); White Blood Cell (WBC) Count 5.43 10x3/uL (4.8-10.8)
[2025-01-09 23:35] LABS: ALT (SGPT) 62 U/L (Less than 34); AST (SGOT) 30 U/L (11-34); Albumin 3.7 g/dL (3.1-4.5); Alkaline Phosphatase 131 U/L (40-110); Anion Gap 15 mmol/L (10-20); BUN (Urea Nitrogen) 30 mg/dL (9.8-20.1); Bilirubin, Total 0.4 mg/dL (0.3-1.2); Calc. Creatinine Clearance 0 mL/min (70-130); Calcium 8.5 mg/dL (7.8-10.44); Carbon Dioxide 19 mmol/L (22-29); Chloride 105 mmol/L (98-107); Globulin 3.0 g/dL (2.4-3.5); Glucose 134 mg/dL (70-105); Potassium 4.6 mmol/L (3.5-5.1); Sodium 134 mmol/L (136-145)
[2025-01-09 23:47] LABS: Anisocytosis SLIGHT = 6-15 cells HPF (0-5); Microcytosis SLIGHT = 6-15 cells HPF (0-5); Platelet Adequacy Comment Platelets Normal; Polychromasia SLIGHT = 2-3 cells HPF (0-2)
[2025-01-10] MEDS ORDERED: Aspirin Chewable 81 MG TAB ONE (00:24)
[2025-01-10] MEDS ORDERED: Furosemide 40 MG (4 mL) VIAL ONE (00:25)
[2025-01-10] MEDS ORDERED: Dextrose 50% Abboject 50 ML SYRINGE SLOW IVP PRN (00:27)
[2025-01-10] MEDS ORDERED: Ondansetron PF 4 MG/2 ML Vial IVP PRN (00:27)
[2025-01-10] MEDS ORDERED: Guaifenesin DM 100-10/5 ML UDCUP PO PRN (00:27)
[2025-01-10] MEDS ORDERED: Melatonin 3 MG TAB PO PRN (00:27)
[2025-01-10] MEDS ORDERED: Senokot S 8.6-50 MG TAB PO PRN (00:27)
[2025-01-10] MEDS ORDERED: Glucagon 1 MG/ML KIT IM PRN (00:27)
[2025-01-10] MEDS ORDERED: Calcium Carbonate 500 MG ChewTAB PO PRN (00:27)
[2025-01-10 01:23] LABS: Acetaminophen Less than 10 mcg/mL (Less than 10); Salicylate Less than 8.0 mg/dL (Less than 8.0)
[2025-01-10 01:47] VITALS: BMI 25.8
[2025-01-10 04:22] LABS: Anion Gap 12 mmol/L (10-20); BUN (Urea Nitrogen) 29 mg/dL (9.8-20.1); Calc. Creatinine Clearance 42 mL/min (70-130); Calcium 8.5 mg/dL (7.8-10.44); Carbon Dioxide 21 mmol/L (22-29); Chloride 107 mmol/L (98-107); Glucose 127 mg/dL (70-105); Potassium 4.3 mmol/L (3.5-5.1); Sodium 136 mmol/L (136-145)
[2025-01-10] MEDS: Furosemide 40 MG (4 mL) VIAL SLOW IVP SCH (05:57)
[2025-01-10] MEDS: Pantoprazole 40 MG DR.TAB PO SCH (09:37)
[2025-01-10] MEDS: Carvedilol 6.25 MG TAB PO SCH (09:37)
[2025-01-10] MEDS: Cyanocobalamin (Vitamin B-12) 1,000 MCG TAB PO SCH (09:37)
[2025-01-10] MEDS: Apixaban 5 MG TAB PO SCH (09:37)
[2025-01-10] MEDS: Ezetimibe 10 MG TAB PO SCH (09:37)
[2025-01-10] MEDS: Ferrous Sulfate 325 MG TAB PO SCH (09:37)
[2025-01-10] MEDS: Sertraline 100 MG TAB PO SCH (09:38)
[2025-01-10] MEDS: Aspirin 81 mg Enteric Coated Tablet PO SCH (09:38)
[2025-01-10] MEDS: Acetaminophen 325 MG TAB PO PRN (21:29)
[2025-01-10] MEDS: Rosuvastatin 20 MG TAB PO SCH (21:30)
[2025-01-11 05:12] LABS: #Basophils 0.04 10x3/uL (0.0-0.2); #Eosinophils 0.14 10x3/uL (0.0-0.7); #Monocytes 0.41 10x3/uL (0.11-0.59); #Neutrophils 2.34 10x3/uL (1.40-6.50); %Basophils 1.1 % (0.0-1.0); %Eosinophils 3.7 % (0.0-10.0); %Lymphocytes 21.7 % (21.0-51.0); %Monocytes 11.0 % (0.0-10.0); %Neutrophils 62.5 % (42.0-75.0); Hematocrit 32.9 % (36.0-47.0); Hemoglobin 9.8 g/dL (12.0-16.0); Mean Corpuscular Hemoglobin 21.7 pg (27.0-31.0); Mean Corpuscular Volume 72.9 fL (78.0-98.0); Platelet Count 193 10x3/uL (130-400); Red Blood Cell (RBC) Count 4.51 mill/uL (4.20-5.40); White Blood Cell (WBC) Count 3.74 10x3/uL (4.8-10.8)
[2025-01-11 05:20] LABS: Albumin 3.3 g/dL (3.1-4.5); Anion Gap 15 mmol/L (10-20); BUN (Urea Nitrogen) 33 mg/dL (9.8-20.1); BUN/Creatinine Ratio 16.26; Calc. Creatinine Clearance 35 mL/min (70-130); Calcium 8.5 mg/dL (7.8-10.44); Carbon Dioxide 25 mmol/L (22-29); Chloride 100 mmol/L (98-107); Glucose 89 mg/dL (70-105); Magnesium 2.2 mg/dL (1.6-2.6); Potassium 4.2 mmol/L (3.5-5.1); Sodium 136 mmol/L (136-145)
[2025-01-11 11:29] VITALS: BP 102/62; TEMP 97.8
[2025-01-13] MEDS ORDERED: FLU (Fluarix Triv) 25-26 (6MOS UP)/PF 45 MCG/0.5 ML Syringe IM ONE (09:00)
== END 2025-01-11 17:25 | disposition home or self-care (01) ==
LOC: ERS 20:40 → 2NO 01-10 00:30 → INTOOBSV 01-10 00:30 → 2NO 01-10 01:20
PROVIDERS: ADMIT Student in an Organized Health Care Education/Training Program; ATTEND Student in an Organized Health Care Education/Training Program
DX: I13.0 Hypertensive heart and chronic kidney disease with heart failure and stage 1 through stage 4 chronic kidney disease, or unspecified chronic kidney disease (principal); I50.33 Acute on chronic diastolic (congestive) heart failure; E11.22 Type 2 diabetes mellitus with diabetic chronic kidney disease; N18.4 Chronic kidney disease, stage 4 (severe); I48.0 Paroxysmal atrial fibrillation; E78.5 Hyperlipidemia, unspecified; I25.10 Atherosclerotic heart disease of native coronary artery without angina pectoris; D50.0 Iron deficiency anemia secondary to blood loss (chronic); Z95.1 Presence of aortocoronary bypass graft; Z88.0 Allergy status to penicillin; Z88.6 Allergy status to analgesic agent; Z90.49 Acquired absence of other specified parts of digestive tract; Z79.82 Long term (current) use of aspirin; Z79.84 Long term (current) use of oral hypoglycemic drugs; Z79.899 Other long term (current) drug therapy
CPT/HCPCS: 36415; 36416; 71045; 80048; 80053; 80069; 80307; 83605; 83735; 83880; 84443; 84484; 85025; 87040; 93005; 96374; G0378; J1815; J1940